=== PATIENT | female | born 1965 | race Caucasian/White ===

== ENCOUNTER 2017-07-21 01:42 | Emergency (ER) | payer BC, OTHER ==
[~2017-07-21] VITALS: Ht 154.9 cm; Wt 79.4 kg
[~2017-07-21 01:42] MED LIST: HYDR-34 PO; MPR22T TP; ONDAN4ODT PO; SULF1TAB38 PO; TPR25T PO
[2017-07-21 02:06] LABS: BILIRUBIN,URINE NEGATIVE (NEGATIVE); CLARITY,URINE BLOODY; GLUCOSE, URINE (UA) NEGATIVE (NEGATIVE); KETONES,URINE NEGATIVE (NEGATIVE); LEUKOCYTE ESTERASE ,URINE 2+ (NEGATIVE); PH,URINE 8 (5-9); PROTEIN,URINE 2+ (NEGATIVE); UROBILINOGEN,URINE 1 MG/DL (NORMAL)
[2017-07-21 02:07] LABS: COLOR,URINE AMBER
[2017-07-21 02:10] LABS: AMORPHOUS SEDIMENT,UR FEW AMOR PHOSPHATE /LPF; BACTERIA,URINE NEGATIVE /HPF; NITRITE,URINE NEGATIVE (NEGATIVE); RBC,URINE >100 /HPF; SQUAMOUS EPITHELIAL CELL,UR 0-2 /HPF; WBC,URINE RARE /HPF
--- NOTE | 2017-07-21 02:23 | ED Back Pain ---
General Chief Complaint: Back Problems Stated Complaint: ABD PAIN & BACK PAIN Nursing Triage Note: right lower back pain radiating to abdomen Nursing Sepsis Screen: No Definite Risk Source of Information: Patient, Other Exam Limitations: No Limitations History of Present Illness Date Seen by Provider: Jul 21, 2017 Time Seen by Provider: 02:19 Initial Comments The patient presents to the ER with one day progressively worsening that pain in her right back that radiates around to her right flank and right upper quadrant abdomen. It is sharp, gripping and waxes and wanes but never goes away. She took some ibuprofen earlier in the morning but threw it up. Same with Tylenol. She's having nausea still. She has no dysuria however she saw her urine was bloody. She thought she was having some cramping the last day or so in her low pelvis and thought maybe she was about to start her period. She says was about time as her last missed her period was about 4 weeks ago. She is not on any kind of control. Patient's having any fevers although she's felt some chills. She's had multiple surgeries to include 3 C-sections, appendectomy, cholecystectomy, hysterectomy, right tube and ovary removal. Allergies and Home Medications Allergies Coded Allergies: No Known Drug Allergies (Unverified , 08/08/11) Patient Home Medication List Home Medication List Reviewed: Yes Constitutional: chills; No diaphoresis, No fever, No malaise EENTM: No ear discharge, No ear pain Respiratory: No cough, No short of breath Cardiovascular: No chest pain, No palpitations Gastrointestinal: RUQ, abdominal pain (RUQ), nausea, vomiting Past Lsbubla-Swhbxr-Foojqg Hx Patient Social History Alcohol Use: Rarely Uses Recreational Drug Use: No Smoking Status: Current Everyday Smoker Type Used: Cigarettes 2nd Hand Smoke Exposure: Yes Recent Foreign Travel: No Contact w/Someone Who Travel: No Recent Infectious Disease Expo: No Recent Hopitalizations: No Immunizations Up To Date Tetanus Booster (TDap): Unknown Seasonal Allergies Seasonal Allergies: No Past Medical History Surgeries: Yes Abdominal, Appendectomy, Section, Gallbladder, Orthopedic, Tonsillectomy Respiratory: No Cardiac: No Neurological: Yes Headaches /Migraines : No Genitourinary: No Gastrointestinal: No Musculoskeletal: Yes Arthritis, Rheumatoid Arthritis Endocrine: No HEENT: No Cancer: No Psychosocial: No Integumentary: No Physical Exam Vital Signs Vital Signs - First Documented 07/21/17 01:45 Temp 97.8 Pulse 93 Resp 18 B/P (MAP) 157/100 (119) Pulse Ox 97 O2 Delivery Room Air Capillary Refill : Less Than 3 Seconds General Appearance: WD/WN, Mild Distress HEENT: PERRL/EOMI, Pharynx Normal Neck: Full Range of Motion, Non Tender, Supple Cardiovascular: Regular Rate, Rhythm, No Edema, Normal Peripheral Pulses Respiratory: Chest Non Tender, Lungs Clear, Normal Breath Sounds Peripheral Pulses: 2+ Dorsalis Pedis (R), 2+ Left Dors-Pedis (L) Gastrointestinal: Normal Bowel Sounds, Soft, Tenderness (mild right upper quadrant tenderness but negative for Mtz sign) Back: Normal Inspection, No Vertebral Tenderness, CVA Tenderness (R); No Muscle Spasm Extremity: Normal Capillary Refill Neurologic/Psychiatric: Alert, Oriented x3 Skin: Normal Color, Warm/Dry Progress/Results/Core Measures Lab Results Laboratory Tests Test 07/21/17 01:55 07/21/17 02:25 Range/Units Urine Color ANITRA H Urine Clarity BLOODY H Urine pH 8 5-9 Urine Specific Ball 1.015 L 1.016-1.022 Urine Protein 2+ H NEGATIVE Urine Glucose (UA) NEGATIVE NEGATIVE Urine Ketones NEGATIVE NEGATIVE Urine Nitrite NEGATIVE NEGATIVE Urine Bilirubin NEGATIVE NEGATIVE Urine Urobilinogen 1 NORMAL MG/DL Urine Leukocyte Esterase 2+ H NEGATIVE Urine RBC (Auto) 5+ H NEGATIVE Urine RBC >100 H /HPF Urine WBC RARE /HPF Urine Squamous Epithelial Cells 0-2 /HPF Urine Crystals PRESENT H /LPF Urine Amorphous Sediment FEW YUE PHOSPHATE H /LPF Urine Bacteria NEGATIVE /HPF Urine Casts NONE /LPF Urine Mucus SMALL H /LPF Urine Culture Indicated NO Urine Opiates Screen NEGATIVE NEGATIVE Urine Oxycodone Screen NEGATIVE NEGATIVE Urine Methadone Screen NEGATIVE NEGATIVE Urine Propoxyphene Screen NEGATIVE NEGATIVE Urine Barbiturates Screen NEGATIVE NEGATIVE Ur Tricyclic Antidepressants Screen NEGATIVE NEGATIVE Urine Phencyclidine Screen NEGATIVE NEGATIVE Urine Amphetamines Screen POSITIVE H NEGATIVE Urine Methamphetamines Screen POSITIVE H NEGATIVE Urine Benzodiazepines Screen NEGATIVE NEGATIVE Urine Cocaine Screen NEGATIVE NEGATIVE Urine Cannabinoids Screen NEGATIVE NEGATIVE White Blood Count 11.2 H 4.3-11.0 10^3/uL Red Blood Count 4.58 4.35-5.85 10^6/uL Hemoglobin 13.0 11.5-16.0 G/DL Hematocrit 39 35-52 % Mean Corpuscular Volume 85 80-99 FL Mean Corpuscular Hemoglobin 28 25-34 PG Mean Corpuscular Hemoglobin Concent 33 32-36 G/DL Red Cell Distribution Width 13.9 10.0-14.5 % Platelet Count 345 130-400 10^3/uL Mean Platelet Volume 9.5 7.4-10.4 FL Neutrophils (%) (Auto) 80 H 42-75 % Lymphocytes (%) (Auto) 12 12-44 % Monocytes (%) (Auto) 6 0-12 % Eosinophils (%) (Auto) 2 0-10 % Basophils (%) (Auto) 0 0-10 % Neutrophils # (Auto) 8.9 H 1.8-7.8 X 10^3 Lymphocytes # (Auto) 1.3 1.0-4.0 X 10^3 Monocytes # (Auto) 0.7 0.0-1.0 X 10^3 Eosinophils # (Auto) 0.2 0.0-0.3 10^3/uL Basophils # (Auto) 0.1 0.0-0.1 10^3/uL My Orders Orders - RAVI GROVE Ua Culture If Indicated (07/21/17 01:47) Urine Bedside (07/21/17 01:48) Cbc With Automated Diff (07/21/17 02:16) Comprehensive Metabolic Panel (07/21/17 02:16) Drug Screen Stat (Urine) (07/21/17 02:16) Magnesium (07/21/17 02:16) Ct Abd/Pelvis Wo(Kidney Stone) (07/21/17 02:16) Abdomen/Kub 1view (07/21/17 02:16) Ketorolac Injection (Toradol Injection) (07/21/17 02:30) Ondansetron Injection (Zofran Injectio (07/21/17 02:30) Saline Lock/Iv-Start (07/21/17 02:23) Medications Given in ED Current Medications Medications Dose Ordered Sig/Gilberto Route Start Time Stop Time Status Last Admin Dose Admin Ketorolac Tromethamine 15 mg ONCE ONCE IVP 07/21/17 02:30 07/21/17 02:31 DC 07/21/17 02:28 15 MG Ondansetron HCl 8 mg ONCE ONCE IVP 07/21/17 02:30 07/21/17 02:31 DC 07/21/17 02:27 8 MG Vital Signs/I&O 07/21/17 07/21/17 01:45 02:28 Temp 97.8 97.8 Pulse 93 Resp 18 B/P (MAP) 157/100 (119) Pulse Ox 97 O2 Delivery Room Air Blood Pressure Mean: 119 Urine -Bedside: Negative Progress Note : Time: 02:22 Progress Note Suspect kidney stone versus muscle spasm versus other? Diagonstic Imaging: Xray Plain Films/CT/US/NM/MRI: abdomen Comments Unremarkable abdominal x-ray. Reviewed: Reviewed by Me Diagonstic Imaging: CT Plain Films/CT/US/NM/MRI: abdomen, pelvis (kidney stone study) Comments 3 mm ureteral calculi impacted the right vesicoureteral junction. Other nonobstructive calculi noted in both kidneys. Reviewed: Reviewed [place] Study, Reviewed by Me Departure Impression Primary Impression: Ureteral calculus Disposition: HOME, SELF-CARE Condition: Improved Departure-Patient Inst. Decision time for Depature: 02:59 Referrals: SUSIE ALAN MD (PCP/Family) Primary Care Physician Patient Instructions: Kidney Stones (DC) Add. Discharge Instructions: Drink lots of fluids. Caffeine is encouraged. Use Tylenol 1000 mg and/or ibuprofen 800 mg every 8 hours as needed. If needing some breakthrough relief you can use one tablet of the Crimora every 6 hours. If you have nausea you can take one tablet of Zofran every 6 hours. Strain your urine and if you're unable to pass the stone the next 3 or 4 days follow-up with urology by calling Dr. Kasper at [phone]. Finally you can take the tamsulosin one tablet every night until you pass the stone to help move things along. All discharge instructions reviewed with patient and/or family. Voiced understanding. Scripts Hydrocodone Bit/Acetaminophen (Hydrocodone/Acetaminophen 5/325mg Tablet) 1 Tab Tab 1 EACH PO Q6H PRN for BREAKTHROUGH PAIN, #10 TAB 0 Refills Prov: RAVI GROVE 07/21/17 Tamsulosin HCl (Tamsulosin HCl) 0.4 Mg Cap.er.24h 0.4 MG PO HS for 5 Days, #5 CAP Prov: RAVI GROVE 07/21/17 Copy Copies To 1: SUSIE ALAN MD, TITUS J Jul 21, 2017 02:23
[2017-07-21] MEDS ORDERED: ONDANSETRON 4 MG/2 ML (SDV) Z0FRAN IVP ONE (02:30)
[2017-07-21] MEDS ORDERED: KETOROLAC 30 MG/ML VIAL IVP ONE (02:30)
[2017-07-21 02:37] LABS: BASOPHILS # (AUTO) 0.1 10^3/uL (0.0-0.1); BASOPHILS % (AUTO) 0 % (0-10); EOSINOPHILS # (AUTO) 0.2 10^3/uL (0.0-0.3); EOSINOPHILS % (AUTO) 2 % (0-10); HEMATOCRIT 39 % (35-52); LYMPHOCYTES # (AUTO) 1.3 X 10^3 (1.0-4.0); LYMPHOCYTES % (AUTO) 12 % (12-44); MEAN CORPUSCULAR HEMOGLOBIN 28 PG (25-34); MEAN CORPUSCULAR HGB CONC 33 G/DL (32-36); MEAN CORPUSCULAR VOLUME 85 FL (80-99); MEAN PLATELET VOLUME 9.5 FL (7.4-10.4); MONOCYTES # (AUTO) 0.7 X 10^3 (0.0-1.0); MONOCYTES % (AUTO) 6 % (0-12); NEUTROPHILS # (AUTO) 8.9 X 10^3 (1.8-7.8); NEUTROPHILS % (AUTO) 80 % (42-75); PLATELET COUNT 345 10^3/uL (130-400); RED BLOOD COUNT 4.58 10^6/uL (4.35-5.85); RED CELL DISTRIBUTION WIDTH 13.9 % (10.0-14.5); WHITE BLOOD COUNT 11.2 10^3/uL (4.3-11.0)
[2017-07-21 02:40] LABS: AMPHETAMINE SCREEN, URINE POSITIVE (NEGATIVE); BARBITURATE SCREEN URINE NEGATIVE (NEGATIVE); BENZODIAZEPINES SCREEN URINE NEGATIVE (NEGATIVE); CANNABINOID SCREEN, URINE NEGATIVE (NEGATIVE); COCAINE SCREEN URINE NEGATIVE (NEGATIVE); METHADONE STAT NEGATIVE (NEGATIVE); METHAMPHETAMINE SCREEN URINE S POSITIVE (NEGATIVE); OPIATE SCREEN URINE NEGATIVE (NEGATIVE); OXYCODONE STAT NEGATIVE (NEGATIVE); PROPOXYPHENE STAT NEGATIVE (NEGATIVE); TRICYCLIC ANTIDEPRESSANTS SCRE NEGATIVE (NEGATIVE)
[2017-07-21 03:01] LABS: ALANINE AMINOTRANSFERASE 23 U/L (0-55); ALKALINE PHOSPHATASE 95 U/L (40-136); BILIRUBIN,TOTAL 0.2 MG/DL (0.1-1.0); BUN/CREATININE RATIO 24; CALCIUM 9.5 MG/DL (8.5-10.1); CARBON DIOXIDE 24 MMOL/L (21-32); CHLORIDE 106 MMOL/L (98-107); CREATININE SERUM 0.85 MG/DL (0.60-1.30); GFR ESTIMATED > 60; GLUCOSE 99 MG/DL (70-105); MAGNESIUM 2.1 MG/DL (1.8-2.4); POTASSIUM 3.9 MMOL/L (3.6-5.0); SODIUM 139 MMOL/L (135-145)
[2017-07-21] MEDS ORDERED: TAMS0.4C2 PO (03:01)
[2017-07-21] MEDS ORDERED: ACHD5005 PO (03:01)
[2017-07-21] MEDS ORDERED: ONDA4TAB11 PO (03:05)
[2017-07-21 03:08] VITALS: BP 126/69
[2017-07-21] MEDS ORDERED: RX-HYDROCODONE/APAP 5/325 MG #4 TAB PK PO PRN (03:15)
--- NOTE | 2017-07-21 06:00 | Diagnostic Imaging Report ---
PROCEDURE: CT urinary tract, rule out kidney stone. TECHNIQUE: Multiple contiguous axial images were obtained through the abdomen and pelvis without the use of intravenous contrast. INDICATION: Right flank pain. COMPARISON: None. FINDINGS: A 0.3 cm renal stone in the right ureterovesicular junction. This results in moderate right ureteropyelocaliectasis. Additional 0.4 cm nonobstructing calyceal tip renal stone in the right kidney. A 0.3 cm nonobstructing calyceal tip renal stone in the left kidney. No left ureteral stones or hydronephrosis. Cholecystectomy. Appendectomy. Lung bases are clear. The liver, pancreas, spleen, adrenals and bladder are negative on this noncontrast exam. Reproductive structures are grossly unremarkable. No acute osseous findings. IMPRESSION: A 0.3 cm renal stone in the right ureterovesicular junction resulting in moderate hydronephrosis. Dictated by: Dictated on workstation # [id number]
--- NOTE | 2017-07-21 06:45 | Diagnostic Imaging Report ---
EXAM: ABDOMEN/KUB 1VIEW INDICATION: Right flank pain. COMPARISON: CT abdomen and pelvis without contrast 07/21/2017. FINDINGS: Cholecystectomy clips. Nonspecific calcifications in the pelvis. No radiopaque bodies overlying the renal shadows. No acute osseous findings. IMPRESSION: No acute radiographic findings in the abdomen. Nonspecific calcifications in the pelvis. Dictated by: Dictated on workstation # [id number]
== END 2017-07-21 03:08 | disposition home or self-care (01) ==
LOC: EDUNIT# 01:42 → ER 01:46
DX: N20.1 Calculus of ureter (principal); M06.9 Rheumatoid arthritis, unspecified; G43.909 Migraine, unspecified, not intractable, without status migrainosus; F17.210 Nicotine dependence, cigarettes, uncomplicated; Z90.49 Acquired absence of other specified parts of digestive tract; Z87.59 Personal history of other complications of pregnancy, childbirth and the puerperium; Z90.89 Acquired absence of other organs; Z90.710 Acquired absence of both cervix and uterus
CPT/HCPCS: 36415; 74018; 74176; 80053; 80306; 81000; 83735; 84703; 85025; 96374; 96375

== ENCOUNTER 2017-11-13 19:38 | Observation (INO) | payer OTHER ==
[~2017-11-13] VITALS: Ht 157.5 cm; Wt 90.8 kg
[~2017-11-13 19:38] MED LIST changes: +ACHD5005 PO; +ONDA4TAB11 PO; +TAMS0.4C2 PO
[2017-11-13 19:52] LABS: BILIRUBIN,URINE NEGATIVE (NEGATIVE); CLARITY,URINE SLIGHTLY CLOUDY; COLOR,URINE YELLOW; GLUCOSE, URINE (UA) NEGATIVE (NEGATIVE); KETONES,URINE NEGATIVE (NEGATIVE); LEUKOCYTE ESTERASE ,URINE 1+ (NEGATIVE); NITRITE,URINE NEGATIVE (NEGATIVE); PH,URINE 6.5 (5-9); PROTEIN,URINE 1+ (NEGATIVE); UROBILINOGEN,URINE NORMAL (NORMAL)
--- NOTE | 2017-11-13 19:56 | ED Abdominal Pain ---
General Stated Complaint: R SIDE ABD PAIN/FEVER Source of Information: Patient Exam Limitations: No Limitations History of Present Illness Date Seen by Provider: Nov 13, 2017 Time Seen by Provider: 19:52 Initial Comments Patient is a 51-year-old female who presents to the emergency room with complaints of right lower abdominal pain, nausea, and fever that started this afternoon. She reports the pain as acute onset and has progressively gotten worse. She rates the pain 7 out of 10. She reports that she does not have an ovary and fallopian tube on the right side, she's had her gallbladder and appendix also removed. Timing/Duration: 4-6 Hours, Getting Worse Severity/Quality: Mild, Moderate, Sharp Location: RLQ Radiation: Back Activities at Onset: None Associated Symptoms: Fever/Chills, Nausea/Vomiting Allergies and Home Medications Allergies Coded Allergies: cephalexin (Unverified Allergy, Unknown, 11/13/17) Uncoded Allergies: AMITRIPOLINE (Allergy, Unknown, 11/13/17) TOBRAMAX (Allergy, Unknown, 11/13/17) Home Medications No Active Prescriptions or Reported Meds Patient Home Medication List Home Medication List Reviewed: Yes Review of Systems Constitutional: see HPI, chills, fever Gastrointestinal: See HPI, Abdominal Pain, Nausea All Other Systems Reviewed Negative Unless Noted: Yes Past Zmbphoi-Lpliox-Wsnldt Hx Past Med/Social Hx: Reviewed Nursing Past Med/Soc Hx Patient Social History Type Used: Cigarettes 2nd Hand Smoke Exposure: Yes Recent Foreign Travel: No Contact w/Someone Who Travel: No Recent Hopitalizations: No Immunizations Up To Date Tetanus Booster (TDap): Unknown Seasonal Allergies Seasonal Allergies: No Past Medical History Surgeries: Yes Abdominal, Appendectomy, Section, Gallbladder, Orthopedic, Tonsillectomy Respiratory: No Cardiac: No Neurological: Yes Headaches /Migraines Genitourinary: No Gastrointestinal: No Musculoskeletal: Yes Arthritis, Rheumatoid Arthritis Endocrine: No HEENT: No Cancer: No Psychosocial: No Integumentary: No Family Medical History Reviewed Nursing Family Hx Physical Exam Vital Signs Vital Signs - First Documented 11/13/17 19:45 Temp 99.7 Pulse 114 Resp 16 B/P (MAP) 155/90 (111) Pulse Ox 100 Capillary Refill : Height/Weight/BMI Height: 5'1" Weight: 175lbs. oz. 79.641130hg; 30.23 BMI Method:Stated General Appearance: WD/WN, no apparent distress Respiratory: chest non-tender, lungs clear, normal breath sounds, no respiratory distress, no accessory muscle use Cardiovascular: regular rate, rhythm, no edema, no gallop, no JVD, no murmur Gastrointestinal: normal bowel sounds, soft, no organomegaly, no pulsatile mass , tenderness (patient is very tender on exam with minimal pressure on palpation. ) Pelvic: normal external exam, normal adnexa, no masses, discharge (yellow discharge on exam. ), tender w/ cervical motion; No vaginal bleeding; other ( cervical was nonfriable on exam.) Neurologic/Psychiatric: alert, normal mood/affect, oriented x 3 Skin: normal color, warm/dry Focused Exam Lactate Level 11/13/17 23:38: Lactic Acid Level 1.12 Lactic Acid Level Laboratory Tests Test 11/13/17 23:38 Lactic Acid Level 1.12 MMOL/L (0.50-2.00) Progress/Results/Core Measures Results/Orders Lab Results Laboratory Tests Test 11/13/17 19:45 11/13/17 19:58 11/13/17 23:38 11/13/17 23:50 Range/Units Urine Color YELLOW Urine Clarity SLIGHTLY CLOUDY Urine pH 6.5 5-9 Urine Specific [place] 1.020 1.016-1.022 Urine Protein 1+ H NEGATIVE Urine Glucose (UA) NEGATIVE NEGATIVE Urine Ketones NEGATIVE NEGATIVE Urine Nitrite NEGATIVE NEGATIVE Urine Bilirubin NEGATIVE NEGATIVE Urine Urobilinogen NORMAL NORMAL MG/DL Urine Leukocyte Esterase 1+ H NEGATIVE Urine RBC (Auto) 1+ H NEGATIVE Urine RBC 0-2 /HPF Urine WBC 0-2 /HPF Urine Squamous Epithelial Cells 5-10 /HPF Urine Crystals NONE /LPF Urine Bacteria TRACE /HPF Urine Casts NONE /LPF Urine Mucus MODERATE H /LPF Urine Culture Indicated NO Urine Test NEGATIVE NEGATIVE White Blood Count 14.6 H 4.3-11.0 10^3/uL Red Blood Count 4.68 4.35-5.85 10^6/uL Hemoglobin 13.5 11.5-16.0 G/DL Hematocrit 41 35-52 % Mean Corpuscular Volume 87 80-99 FL Mean Corpuscular Hemoglobin 29 25-34 PG Mean Corpuscular Hemoglobin Concent 33 32-36 G/DL Red Cell Distribution Width 15.2 H 10.0-14.5 % Platelet Count 334 130-400 10^3/uL Mean Platelet Volume 10.3 7.4-10.4 FL Neutrophils (%) (Auto) 78 H 42-75 % Lymphocytes (%) (Auto) 14 12-44 % Monocytes (%) (Auto) 7 0-12 % Eosinophils (%) (Auto) 1 0-10 % Basophils (%) (Auto) 0 0-10 % Neutrophils # (Auto) 11.4 H 1.8-7.8 X 10^3 Lymphocytes # (Auto) 2.1 1.0-4.0 X 10^3 Monocytes # (Auto) 1.0 0.0-1.0 X 10^3 Eosinophils # (Auto) 0.2 0.0-0.3 10^3/uL Basophils # (Auto) 0.0 0.0-0.1 10^3/uL Neutrophils % (Manual) 77 % Lymphocytes % (Manual) 13 % Monocytes % (Manual) 10 % Eosinophils % (Manual) 0 % Basophils % (Manual) 0 % Band Neutrophils 0 % Blood Morphology Comment NORMAL Sodium Level 140 135-145 MMOL/L Potassium Level 4.0 3.6-5.0 MMOL/L Chloride Level 108 H 98-107 MMOL/L Carbon Dioxide Level 21 21-32 MMOL/L Anion Gap 11 5-14 MMOL/L Blood Urea Nitrogen 17 7-18 MG/DL Creatinine 0.88 0.60-1.30 MG/DL Estimat Glomerular Filtration Rate > 60 BUN/Creatinine Ratio 19 Glucose Level 118 H 70-105 MG/DL Calcium Level 9.7 8.5-10.1 MG/DL Corrected Calcium 9.6 8.5-10.1 MG/DL Total Bilirubin 0.3 0.1-1.0 MG/DL Aspartate Amino Transf (AST/SGOT) 18 5-34 U/L Alanine Aminotransferase (ALT/SGPT) 17 0-55 U/L Alkaline Phosphatase 94 40-136 U/L Total Protein 6.9 6.4-8.2 GM/DL Albumin 4.1 3.2-4.5 GM/DL Amylase Level 72 25-125 U/L Lipase 27 8-78 U/L Lactic Acid Level 1.12 0.50-2.00 MMOL/L Micro Results Microbiology 11/13/17 Blood Culture - Preliminary, Resulted No growth 11/13/17 Genital Culture - Preliminary, Resulted Results To Follow See Comments Sent To [facility] 11/13/17 ALISON Preparation - Final, Resulted 11/13/17 Wet Prep - Final, Resulted My Orders Orders - TORSTEN AGUAYO Comprehensive Metabolic Panel (11/13/17 19:51) Lipase (11/13/17 19:51) Amylase (11/13/17 19:51) Saline Lock/Iv-Start (11/13/17 19:51) Cbc With Automated Diff (11/13/17 19:51) Fentanyl Injection (Sublimaze Injection (11/13/17 20:15) Ondansetron Injection (Zofran Injectio (11/13/17 20:15) Ns Iv 1000 Ml (Sodium Chloride 0.9%) (11/13/17 20:15) Ct Abdomen/Pelvis W (11/13/17 20:09) Manual Differential (11/13/17 19:58) Iohexol Injection (Omnipaque 350 Mg/Ml 1 (11/13/17 20:45) Sodium Chloride Flush (Catheter Flush Sy (11/13/17 20:45) Ns (Ivpb) (Sodium Chloride 0.9%) (11/13/17 20:45) Fentanyl Injection (Sublimaze Injection (11/13/17 21:00) Hcg,Qualitative Urine (11/13/17 21:00) Fentanyl Injection (Sublimaze Injection (11/13/17 22:15) Morphine Injection (Morphine Injection (11/13/17 23:30) Wet Prep (11/13/17 23:19) Neisseria Gonorrhea Swab (11/13/17 23:19) Genital Culture (11/13/17 23:19) Alison Prep (11/13/17 23:19) Chlamydia Trachomatis Swab (11/13/17 23:19) Blood Culture (11/13/17 23:19) Protime With Inr (11/13/17 23:19) Partial Thromboplastin Time (11/13/17 23:19) Vital Signs Adult Sepsis Patie Q15M (11/13/17 23:19) Lactic Acid Analyzer (11/13/17 23:19) Us Non Ob Pelvis Comp/Transvag (11/14/17 23:19) Medications Given in ED Vital Signs/I&O 11/13/17 19:45 Temp 99.7 Pulse 114 Resp 16 B/P (MAP) 155/90 (111) Pulse Ox 100 Progress Progress Note : Time: 23:15 Progress Note Spoke to Dr. Sapp at this time regarding the patient's CT findings. He recommends pelvic ultrasound, admission, IV antibiotics, pain control. He accepts patient at this time. He will be notified of ultrasound results. 0025: Dr. Sapp was informed of mechanical assembly technician's report. (7 cm adnexal mass. No ovarian tissue noted.) He still recommends above treatment. Will call with ultrasound report if different. Diagnostic Imaging Diagonstic Imaging: CT, Ultrasound Plain Films/CT/US/NM/MRI: abdomen, pelvis Comments NAME: JOSE ALBERTO ZAVALA [facility] REC#: [id number] PT STATUS: ADM Kavita : 1965 PHYSICIAN: TORSTEN AGUAYO ADMIT DATE: 11/13/17 Signed Date of Exam: 11/14/17 US NON OB PELVIS COMP/TRANSVAG INDICATION: Right lower quadrant pain. TECHNIQUE: Multiple real time ramos scale sonographic images were obtained of the pelvis transabdominally and transvaginally. CORRELATION STUDY: None FINDINGS: UTERUS/ENDOMETRIUM: Uterus measures 9 x 5.9 x 4.8 cm cm. Endometrial thickness is 7 mm. The uterus and endometrium appearing unremarkable. RIGHT OVARY: Not definitively visualized. LEFT OVARY: Not definitively visualized. There is a complex cystic and tubular structure of the right adnexa. This area measures approximately 6.2 x 7.4 x 3.1 cm. No definitive internal or surrounding hyperemia. No significant free pelvic fluid. IMPRESSION: 1. Nonvisualization of either ovary likely obscured by overlying bowel gas. 2. Complex cystic and tubular structure of the right adnexa. Findings are nonspecific and could be reflective of underlying tubo-ovarian abscess, hydro/pyosalpinx and/or complex right ovarian cystic mass. Cystic neoplasm, hemorrhagic cyst or other mass lesions including endometrioma are not excluded. Adnexal torsion would be difficult to exclude as well. A preliminary report was provided by Crystal. Dictated by: Dictated on workstation # [id number] Dict: 11/14/17 0640 Trans: 08/11/18 0919 Interpreted by: JO,MARTHA K DO Electronically signed by: MARTHA OSORIO DO 11/14/17918 NAME: JOSE ALBERTO ZAVALA [facility] REC#: [id number] PHYSICIAN: TORSTEN AGUAYO CC: TORSTEN AGUAYO; JULIETTE BAKER Page 2 of 2 RADIOLOGY REPORT VIA [place], [place] CC: TORSTEN AGUAYO; JULIETTE BAKER Page 1 of 1 RADIOLOGY REPORT NAME: JOSE ALBERTO ZAVALA [facility] REC#: [id number] PT STATUS: ADM Kavita : 1965 PHYSICIAN: TORSTEN AGUAYO ADMIT DATE: 11/13/17 Signed Date of Exam: 11/13/17 CT ABDOMEN/PELVIS W PROCEDURE: CT abdomen and pelvis with contrast. TECHNIQUE: Multiple contiguous axial images were obtained through the abdomen and pelvis after administration of intravenous contrast. INDICATION: Abdominal pain, back pain, nausea. Study compared to 07/21/2017. There is no hydronephrosis, no perinephric or periureteric edema. The gallbladder absent. The liver, bile ducts, spleen, adrenals and pancreas appear normal. There is no small or large bowel obstruction. There is a tiny fatty umbilical hernia chronic. There is no evidence for appendicitis or diverticulitis. Uterus and left adnexa unremarkable. The urinary bladder unremarkable. Left adnexal cystic nodule present on the prior has resolved in the interim. There are anterior and posterior right adnexal cystic nodules having slightly increased from the prior. The more posterior lesion measures 3.9 cm, the more anterior 2.8 cm. Their woodall appeared thin and there was not a substantial amount of adjacent edema. The larger does appear to contain the dependent hyperdense fluid fluid level and there may be some intraluminal complexity within the smaller anterior component. A complex cyst including hemorrhagic etiologies are favored. Given the lack of adjacent inflammatory change infectious etiology would be unlikely but clinical correlation advised. Impression: No hydronephrosis, negative appendix. No obstructive phenomena. Right adnexal cystic lesions increased in size from 07/21/2017 likely complex cysts, correlative ultrasound suggested. No substantial regional inflammatory changes that would suggest an infectious etiology or post ischemic sequelae. Resolution of previous hydronephrosis and resolution of cystic left adnexal mass, noninflamed diverticulosis. Dictated by: Dictated on workstation # [id number] Dict: 11/14/17606 Trans: 11/14/17916 Interpreted by: JULIETTE BAKER Electronically signed by: JULIETTE BAKER 11/14/17916 Reviewed: Reviewed by Me Departure Communication (Admissions) Time/Spoke to Admitting Phy: 00:25 DELORES Impression Primary Impression: Adnexal cyst Additional Impressions: Adnexal mass Pelvic abscess Disposition: ADMITTED INPATIENT Condition: Stable/Unchanged Admissions Decision to Admit Reason: Admit from ER (General) Decision to Admit/Date: Nov 14, 2017 Time/Decision to Admit Time: 00:39 Departure-Patient Inst. Referrals: SUSIE ALAN MD (PCP/Family) Primary Care Physician Scripts No Active Prescriptions or Reported Meds TORSTEN AGUAYO Nov 13, 2017 19:56
[2017-11-13 20:04] LABS: BACTERIA,URINE TRACE /HPF; RBC,URINE 0-2 /HPF; WBC,URINE 0-2 /HPF
[2017-11-13 20:08] LABS: BASOPHILS % (AUTO) 0 % (0-10); EOSINOPHILS # (AUTO) 0.2 10^3/uL (0.0-0.3); EOSINOPHILS % (AUTO) 1 % (0-10); HEMATOCRIT 41 % (35-52); HEMOGLOBIN 13.5 G/DL (11.5-16.0); LYMPHOCYTES # (AUTO) 2.1 X 10^3 (1.0-4.0); LYMPHOCYTES % (AUTO) 14 % (12-44); MEAN CORPUSCULAR HEMOGLOBIN 29 PG (25-34); MEAN CORPUSCULAR HGB CONC 33 G/DL (32-36); MEAN CORPUSCULAR VOLUME 87 FL (80-99); MEAN PLATELET VOLUME 10.3 FL (7.4-10.4); MONOCYTES % (AUTO) 7 % (0-12); NEUTROPHILS # (AUTO) 11.4 X 10^3 (1.8-7.8); NEUTROPHILS % (AUTO) 78 % (42-75); PLATELET COUNT 334 10^3/uL (130-400); RED BLOOD COUNT 4.68 10^6/uL (4.35-5.85); RED CELL DISTRIBUTION WIDTH 15.2 % (10.0-14.5); WHITE BLOOD COUNT 14.6 10^3/uL (4.3-11.0)
[2017-11-13] MEDS: NS IV 1000 ML 1,000 ML IV SCH (20:12)
[2017-11-13] MEDS ORDERED: ONDANSETRON 4 MG/2 ML (SDV) Z0FRAN IVP ONE (20:15)
[2017-11-13] MEDS ORDERED: fentaNYL INJECTION 100 MCG/2 ML AMP IVP ONE ×3 (20:15→22:15)
[2017-11-13 20:27] LABS: ALANINE AMINOTRANSFERASE 17 U/L (0-55); ALBUMIN 4.1 GM/DL (3.2-4.5); ALKALINE PHOSPHATASE 94 U/L (40-136); AMYLASE 72 U/L (25-125); BILIRUBIN,TOTAL 0.3 MG/DL (0.1-1.0); BUN/CREATININE RATIO 19; CALCIUM 9.7 MG/DL (8.5-10.1); CARBON DIOXIDE 21 MMOL/L (21-32); CHLORIDE 108 MMOL/L (98-107); CREATININE SERUM 0.88 MG/DL (0.60-1.30); GFR ESTIMATED > 60; GLUCOSE 118 MG/DL (70-105); LIPASE 27 U/L (8-78); SODIUM 140 MMOL/L (135-145); TOTAL PROTEIN 6.9 GM/DL (6.4-8.2)
[2017-11-13 20:38] LABS: BAND NEUTROPHILS 0 %; BASOPHILS % (MANUAL) 0 %; EOSINOPHILS % (MANUAL) 0 %; LYMPHOCYTES % (MANUAL) 13 %; MONOCYTES % (MANUAL) 10 %; NEUTROPHILS % (MANUAL) 77 %
[2017-11-13 20:39] LABS: RBC MORPH NORMAL
[2017-11-13] MEDS ORDERED: CATHETER FLUSH 10 ML SYR IV PRN (20:45)
[2017-11-13] MEDS ORDERED: NS 250 ML (IVPB) BAG IV ONE (20:45)
[2017-11-13] MEDS ORDERED: IOHEXOL 350 MG/ML 100 ML (OMNIPAQUE 350) VIAL IV ONE (20:45)
[2017-11-13] MEDS ORDERED: morphine INJ 10 MG/ML 1ML (SYR OR VIAL) IVP ONE (23:30)
[2017-11-14] MEDS ORDERED: ONDANSETRON 4 MG/2 ML (SDV) Z0FRAN IVP ONE (00:15)
[2017-11-14] MEDS ORDERED: PIPERACILLIN SODIUM/TAZOBACTAM 4.5 GM in D5W 100 ML IVPB 100 ML IV ONE (00:15)
[2017-11-14 00:20] LABS: PROTHROMBIN TIME PATIENT 13.1 SEC (12.2-14.7)
[2017-11-14] MEDS ORDERED: morphine INJ 10 MG/ML 1ML (SYR OR VIAL) ONE (01:53)
[2017-11-14] MEDS: NS IV 1000 ML 1,000 ML IV SCH ×3 (01:53→09:19)
[2017-11-14 02:00] VITALS: BP 121/76
[2017-11-14] MEDS ORDERED: ONDANSETRON 4 MG/2 ML (SDV) Z0FRAN IV PRN (02:00)
[2017-11-14] MEDS: morphine INJ 4 MG/ML 1 ML (VIAL/SYRINGE) IV PRN ×3 (02:05→07:51)
[2017-11-14 04:00] VITALS: BP 117/65
[2017-11-14] MEDS: PIPERACILLIN/TAZO 4.5 GM/D5W 100 ML IV SCH ×4 (05:37→14:20)
[2017-11-14 05:40] LABS: BASOPHILS % (AUTO) 0 % (0-10); EOSINOPHILS # (AUTO) 0.1 10^3/uL (0.0-0.3); EOSINOPHILS % (AUTO) 1 % (0-10); HEMATOCRIT 39 % (35-52); HEMOGLOBIN 12.6 G/DL (11.5-16.0); LYMPHOCYTES # (AUTO) 1.9 X 10^3 (1.0-4.0); LYMPHOCYTES % (AUTO) 13 % (12-44); MEAN CORPUSCULAR HEMOGLOBIN 29 PG (25-34); MEAN CORPUSCULAR HGB CONC 33 G/DL (32-36); MEAN CORPUSCULAR VOLUME 88 FL (80-99); MONOCYTES # (AUTO) 1.2 X 10^3 (0.0-1.0); MONOCYTES % (AUTO) 8 % (0-12); NEUTROPHILS # (AUTO) 11.4 X 10^3 (1.8-7.8); NEUTROPHILS % (AUTO) 78 % (42-75); PLATELET COUNT 288 10^3/uL (130-400); RED BLOOD COUNT 4.38 10^6/uL (4.35-5.85); RED CELL DISTRIBUTION WIDTH 15.3 % (10.0-14.5); WHITE BLOOD COUNT 14.6 10^3/uL (4.3-11.0)
[2017-11-14 05:59] LABS: ALANINE AMINOTRANSFERASE 28 U/L (0-55); ALKALINE PHOSPHATASE 95 U/L (40-136); BILIRUBIN,TOTAL 0.8 MG/DL (0.1-1.0); BUN/CREATININE RATIO 16; CALCIUM 9.2 MG/DL (8.5-10.1); CARBON DIOXIDE 20 MMOL/L (21-32); CHLORIDE 105 MMOL/L (98-107); CREATININE SERUM 0.79 MG/DL (0.60-1.30); GFR ESTIMATED > 60; GLUCOSE 99 MG/DL (70-105); POTASSIUM 3.9 MMOL/L (3.6-5.0); SODIUM 135 MMOL/L (135-145); TOTAL PROTEIN 6.7 GM/DL (6.4-8.2)
--- NOTE | 2017-11-14 06:39 | Diagnostic Imaging Report ---
PROCEDURE: CT abdomen and pelvis with contrast. TECHNIQUE: Multiple contiguous axial images were obtained through the abdomen and pelvis after administration of intravenous contrast. INDICATION: Abdominal pain, back pain, nausea. Study compared to 07/21/2017. There is no hydronephrosis, no perinephric or periureteric edema. The gallbladder absent. The liver, bile ducts, spleen, adrenals and pancreas appear normal. There is no small or large bowel obstruction. There is a tiny fatty umbilical hernia chronic. There is no evidence for appendicitis or diverticulitis. Uterus and left adnexa unremarkable. The urinary bladder unremarkable. Left adnexal cystic nodule present on the prior has resolved in the interim. There are anterior and posterior right adnexal cystic nodules having slightly increased from the prior. The more posterior lesion measures 3.9 cm, the more anterior 2.8 cm. Their woodall appeared thin and there was not a substantial amount of adjacent edema. The larger does appear to contain the dependent hyperdense fluid fluid level and there may be some intraluminal complexity within the smaller anterior component. A complex cyst including hemorrhagic etiologies are favored. Given the lack of adjacent inflammatory change infectious etiology would be unlikely but clinical correlation advised. Impression: No hydronephrosis, negative appendix. No obstructive phenomena. Right adnexal cystic lesions increased in size from 07/21/2017 likely complex cysts, correlative ultrasound suggested. No substantial regional inflammatory changes that would suggest an infectious etiology or post ischemic sequelae. Resolution of previous hydronephrosis and resolution of cystic left adnexal mass, noninflamed diverticulosis. Dictated by: Dictated on workstation # [id number]
--- NOTE | 2017-11-14 08:07 | Diagnostic Imaging Report ---
INDICATION: Right lower quadrant pain. TECHNIQUE: Multiple real time ramos scale sonographic images were obtained of the pelvis transabdominally and transvaginally. CORRELATION STUDY: None FINDINGS: UTERUS/ENDOMETRIUM: Uterus measures 9 x 5.9 x 4.8 cm cm. Endometrial thickness is 7 mm. The uterus and endometrium appearing unremarkable. RIGHT OVARY: Not definitively visualized. LEFT OVARY: Not definitively visualized. There is a complex cystic and tubular structure of the right adnexa. This area measures approximately 6.2 x 7.4 x 3.1 cm. No definitive internal or surrounding hyperemia. No significant free pelvic fluid. IMPRESSION: 1. Nonvisualization of either ovary likely obscured by overlying bowel gas. 2. Complex cystic and tubular structure of the right adnexa. Findings are nonspecific and could be reflective of underlying tubo-ovarian abscess, hydro/pyosalpinx and/or complex right ovarian cystic mass. Cystic neoplasm, hemorrhagic cyst or other mass lesions including endometrioma are not excluded. Adnexal torsion would be difficult to exclude as well. A preliminary report was provided by [facility]. Dictated by: Dictated on workstation # [id number]
[2017-11-14 08:30] VITALS: BP 115/72
[2017-11-14] MEDS ORDERED: ONDANSETRON 4 MG/2 ML (SDV) Z0FRAN IVP PRN (09:00)
[2017-11-14] MEDS: BUTORPHANOL INJ 2 MG/ML (STADOL) VIAL IV PRN ×2 (09:55→14:42)
--- NOTE | 2017-11-14 10:10 | History & Physical ---
History and Physical Date Seen by Provider: Nov 14, 2017 Time Seen by Provider: 09:52 This patient is a 51-year-old G4 for white female admitted last evening via the emergency department due to severe onset of abdominal and right lower quadrant pain. Evaluation in the emergency department included PE, lab CT and ultrasound. Those findings are suspicious for a right adnexal mass consistent with TOA versus adnexal torsion versus other etiology. As her white blood cell count was elevated and she was febrile she was started on Zosyn and admitted for observation. Through the night her symptoms failed to improve and in fact have progressed. She is experiencing persistent nausea with emesis. Her pain is poorly controlled with fentanyl and morphine. Her history is significant for having had a ruptured appendix at the age of 23 that resulted an extensive abdominopelvic adhesive disease as evidenced by difficulty with the surgeon performing a cholecystectomy due to adhesions and with difficulty with both of her deliveries due to extensive pelvic adhesions. This patient's status and condition hasn't been discussed with Dr. Evans at [facility]. He did suggest considering CT guided needle aspiration of the cystic mass however our institution does not have invasive radiology services available on the weekend - as our radiologist is only on site Thursday through Thursday. Dr. Evans agrees to accept in transfer. The patient agrees to transfer. Transfer is necessary for level of care that is not available here in [facility]. This patient's allergies are to amitriptyline apparently causes anaphylaxis, she is also allergic to Topamax and cephalexin which both cause rashes Patient reports she was on no medications prior to admission Past medical history includes history of lichen sclerosus et atrophicus , history of kidney stones history of arthritis Past surgeries include appendectomy at the age of 23, cholecystectomy in 2006, 2 deliveries,, Obstetric history includes 2 cesareans and 2 miscarriages Family history is noncontributory Social history patient has smoked in the past she currently denies tobacco use she uses alcohol socially she denies drug use Laboratory Tests Test 11/13/17 19:45 11/13/17 19:58 11/13/17 23:38 11/13/17 23:50 Range/Units Urine Color YELLOW Urine Clarity SLIGHTLY CLOUDY Urine pH 6.5 5-9 Urine Specific [place] 1.020 1.016-1.022 Urine Protein 1+ H NEGATIVE Urine Glucose (UA) NEGATIVE NEGATIVE Urine Ketones NEGATIVE NEGATIVE Urine Nitrite NEGATIVE NEGATIVE Urine Bilirubin NEGATIVE NEGATIVE Urine Urobilinogen NORMAL NORMAL MG/DL Urine Leukocyte Esterase 1+ H NEGATIVE Urine RBC (Auto) 1+ H NEGATIVE Urine RBC 0-2 /HPF Urine WBC 0-2 /HPF Urine Squamous Epithelial Cells 5-10 /HPF Urine Crystals NONE /LPF Urine Bacteria TRACE /HPF Urine Casts NONE /LPF Urine Mucus MODERATE H /LPF Urine Culture Indicated NO Urine Test NEGATIVE NEGATIVE White Blood Count 14.6 H 4.3-11.0 10^3/uL Red Blood Count 4.68 4.35-5.85 10^6/uL Hemoglobin 13.5 11.5-16.0 G/DL Hematocrit 41 35-52 % Mean Corpuscular Volume 87 80-99 FL Mean Corpuscular Hemoglobin 29 25-34 PG Mean Corpuscular Hemoglobin Concent 33 32-36 G/DL Red Cell Distribution Width 15.2 H 10.0-14.5 % Platelet Count 334 130-400 10^3/uL Mean Platelet Volume 10.3 7.4-10.4 FL Neutrophils (%) (Auto) 78 H 42-75 % Lymphocytes (%) (Auto) 14 12-44 % Monocytes (%) (Auto) 7 0-12 % Eosinophils (%) (Auto) 1 0-10 % Basophils (%) (Auto) 0 0-10 % Neutrophils # (Auto) 11.4 H 1.8-7.8 X 10^3 Lymphocytes # (Auto) 2.1 1.0-4.0 X 10^3 Monocytes # (Auto) 1.0 0.0-1.0 X 10^3 Eosinophils # (Auto) 0.2 0.0-0.3 10^3/uL Basophils # (Auto) 0.0 0.0-0.1 10^3/uL Neutrophils % (Manual) 77 % Lymphocytes % (Manual) 13 % Monocytes % (Manual) 10 % Eosinophils % (Manual) 0 % Basophils % (Manual) 0 % Band Neutrophils 0 % Blood Morphology Comment NORMAL Sodium Level 140 135-145 MMOL/L Potassium Level 4.0 3.6-5.0 MMOL/L Chloride Level 108 H 98-107 MMOL/L Carbon Dioxide Level 21 21-32 MMOL/L Anion Gap 11 5-14 MMOL/L Blood Urea Nitrogen 17 7-18 MG/DL Creatinine 0.88 0.60-1.30 MG/DL Estimat Glomerular Filtration Rate > 60 BUN/Creatinine Ratio 19 Glucose Level 118 H 70-105 MG/DL Calcium Level 9.7 8.5-10.1 MG/DL Corrected Calcium 9.6 8.5-10.1 MG/DL Total Bilirubin 0.3 0.1-1.0 MG/DL Aspartate Amino Transf (AST/SGOT) 18 5-34 U/L Alanine Aminotransferase (ALT/SGPT) 17 0-55 U/L Alkaline Phosphatase 94 40-136 U/L Total Protein 6.9 6.4-8.2 GM/DL Albumin 4.1 3.2-4.5 GM/DL Amylase Level 72 25-125 U/L Lipase 27 8-78 U/L Lactic Acid Level 1.12 0.50-2.00 MMOL/L Test 11/13/17 23:58 11/14/17 05:09 Range/Units Prothrombin Time 13.1 12.2-14.7 SEC INR Comment 1.0 0.8-1.4 Activated Partial Thromboplast Time 28 24-35 SEC White Blood Count 14.6 H 4.3-11.0 10^3/uL Red Blood Count 4.38 4.35-5.85 10^6/uL Hemoglobin 12.6 11.5-16.0 G/DL Hematocrit 39 35-52 % Mean Corpuscular Volume 88 80-99 FL Mean Corpuscular Hemoglobin 29 25-34 PG Mean Corpuscular Hemoglobin Concent 33 32-36 G/DL Red Cell Distribution Width 15.3 H 10.0-14.5 % Platelet Count 288 130-400 10^3/uL Mean Platelet Volume 10.0 7.4-10.4 FL Neutrophils (%) (Auto) 78 H 42-75 % Lymphocytes (%) (Auto) 13 12-44 % Monocytes (%) (Auto) 8 0-12 % Eosinophils (%) (Auto) 1 0-10 % Basophils (%) (Auto) 0 0-10 % Neutrophils # (Auto) 11.4 H 1.8-7.8 X 10^3 Lymphocytes # (Auto) 1.9 1.0-4.0 X 10^3 Monocytes # (Auto) 1.2 H 0.0-1.0 X 10^3 Eosinophils # (Auto) 0.1 0.0-0.3 10^3/uL Basophils # (Auto) 0.0 0.0-0.1 10^3/uL Sodium Level 135 135-145 MMOL/L Potassium Level 3.9 3.6-5.0 MMOL/L Chloride Level 105 98-107 MMOL/L Carbon Dioxide Level 20 L 21-32 MMOL/L Anion Gap 10 5-14 MMOL/L Blood Urea Nitrogen 13 7-18 MG/DL Creatinine 0.79 0.60-1.30 MG/DL Estimat Glomerular Filtration Rate > 60 BUN/Creatinine Ratio 16 Glucose Level 99 70-105 MG/DL Calcium Level 9.2 8.5-10.1 MG/DL Corrected Calcium 9.2 8.5-10.1 MG/DL Total Bilirubin 0.8 0.1-1.0 MG/DL Aspartate Amino Transf (AST/SGOT) 37 H 5-34 U/L Alanine Aminotransferase (ALT/SGPT) 28 0-55 U/L Alkaline Phosphatase 95 40-136 U/L Total Protein 6.7 6.4-8.2 GM/DL Albumin 4.0 3.2-4.5 GM/DL Lab work is as noted area CT obtained last night. The emergency department showed a right adnexal complex cystic mass Transvaginal ultrasound confirmed the same Physical exam Patient is a well-developed well-nourished white female in [id number]-cirbultb distress due to abdominal pain and nausea. HEENT exam is normal Heart has a regular rhythm with no murmurs Chest is clear to auscultation bilaterally Neck is supple no lymphadenopathy no thyromegaly Abdomen is tender on palpation relatively diffusely. Bowel sounds are present. There is voluntary guarding. Tenderness is greatest in the right lower quadrant. There is a psoas sign only on the right. There is an obturator sign on the right. Extremities show no clubbing cyanosis. There is no Homans sign. Pelvic exam was accomplished in the emergency department last evening and was not repeated by me. Report from the ED physician included a purulent / yellow discharge noted on speculum exam and cervical motion tenderness on bimanual exam. Patient was uncomfortable to the point that adequate bimanual exam was not completed. Pain was primarily in the right adnexa on palpation. Assessment and plan 51-year-old G4 white female with acute abdomen possibly due to TOA versus adnexal torsion versus other etiology. White count is mildly elevated patient has been started empirically on Zosyn. Pain medications have included fentanyl morphine and Stadol. Patient is receiving IV fluids and IV antiemetics in addition to the IV analgesics. I feel this patient needs either CT-guided cyst aspiration and / or laparoscopic versus abdominal/pelvic surgery. With this patient's history of ruptured appendix at the age of 23 with resultant extensive adhesions noted on her cholecystectomy and both of her C-sections I would be remiss to proceed to surgery with this patient without ready availability of urology and general surgery needed which are on-site currently. This patient's case has been reviewed with Dr. Evans at [facility] who has agreed to accept in transfer. We will arrange Transport via ambulance for transfer to [facility] to the care of Dr. Evans Severe pelvic pain with acute onset Allergies and Home Medications Allergies Coded Allergies: cephalexin (Unverified Allergy, Unknown, 11/13/17) Uncoded Allergies: AMITRIPOLINE (Allergy, Unknown, 11/13/17) TOBRAMAX (Allergy, Unknown, 11/13/17) Home Medications No Active Prescriptions or Reported Meds Patient Home Medication List Home Medication List Reviewed: Yes Clinical Quality Measures DVT/VTE Risk/Contraindication: Risk Factor Score Per Nursin RFS Level Per Nursing on Admit: 3=High DEVANTE ESTRELLA MD Nov 14, 2017 10:10
[2017-11-14] MEDS ORDERED: PROMETHAZINE INJ 25 MG/ML (PHENERGAN) AMP IVP PRN (11:45)
[2017-11-14 12:30] VITALS: BP 126/88
[2017-11-14 14:50] VITALS: BP 126/88
== END 2017-11-14 14:50 | disposition short-term general hospital (02) ==
LOC: EDUNIT# 19:38 → ER 19:39 → 4TH 23:50
PROVIDERS: ADMIT Obstetrics & Gynecology; ATTEND Obstetrics & Gynecology
DX: R10.31 Right lower quadrant pain (principal); Z87.442 Personal history of urinary calculi; M06.9 Rheumatoid arthritis, unspecified; G43.909 Migraine, unspecified, not intractable, without status migrainosus
CPT/HCPCS: 36415; 74177; 76830; 76856; 80053; 81000; 82150; 83605; 83690; 84703; 85007; 85025; 85027; 85610; 85730; 87040; 87070; 87077; 87210; 87220; 87491; 87591; 96361; 96365; 96375; 96376; G0378